=== PATIENT | male | born 2000 | race Caucasian/White ===

== ENCOUNTER 2021-04-01 22:37 | Emergency (ER) | payer SELFPAY ==
[2021-04-01 22:54] VITALS: TEMP 99
[2021-04-02 02:43] LABS: BASO # 0.1 K/mm3 (0.0-0.2); EOS # 0.6 K/mm3 (0.0-0.7); EOS % 6.7 % (0-4.0); GRAN # 4.2 K/mm3 (1.4-6.5); GRAN % 50.5 % (42.2-75.2); HEMATOCRIT 42.3 % (36.0-47.0); HEMOGLOBIN 14.6 g/dl (12.5-16.1); LYMPH # 2.8 K/mm3 (1.2-3.4); LYMPH % 33.2 % (20.0-51.0); MEAN CELL VOLUME 81 fl (80.0-95.0); MEAN CORPUSCULAR HEMOGLOBIN 28 pg (26.0-32.0); MEAN CORPUSCULAR HGB CONC 35 g/dl (33.0-37.0); MEAN PLATELET VOLUME 12.5 fl (7.4-10.4); MONO # 0.7 K/mm3 (0.1-0.6); MONO % 8.4 % (1.7-9.3); PLATELET COUNT 159 K/mm3 (130-400); RED BLOOD COUNT 5.24 M/mm3 (4.20-5.60); REDCELL DISTRIBUTION WIDTH-CV 11.9 % (11.5-14.5)
[2021-04-02 04:29] LABS: CREATININE, serum 0.95 mg/dL (0.72-1.25); POTASSIUM 5.3 mmol/L (3.4-5.0)
[2021-04-02 04:30] LABS: ALBUMIN 4.5 gm/dL (3.5-5.0); BILIRUBIN,TOTAL 0.4 mg/dL (0.2-1.2); C-REACTIVE PROTEIN 0.03 mg/dL (0.00-0.50); CALCIUM 9.8 mg/dL (8.4-10.2); TOTAL PROTEIN 8.9 gm/dL (6.4-8.2)
[2021-04-02] MEDS ORDERED: PROTONIX20 MG PO (04:34)
[2021-04-02 04:53] VITALS: BP 128/61; PULSE 80
== END 2021-04-02 04:52 | disposition home or self-care (01) ==
LOC: COL.ER 22:37
PROVIDERS: Nurse Practitioner
DX: R10.10 Upper abdominal pain, unspecified (principal)
CPT/HCPCS: J1885; J2405; J7030